=== PATIENT | male | born 1975 | race Two or more races ===

== ENCOUNTER 2020-09-05 12:06 | Emergency (ER) | payer OTHER ==
[~2020-09-05] VITALS: Ht 185.4 cm; Wt 108.9 kg
[~2020-09-05 12:06] MED LIST: BUCALSEP SPRAY30 ML MM; CATAFLAM50 MG; CIPRODEX OTIC7.5 ML OT; GABAPENTIN; GILTUSS TR TAB1 EACH PO; LOTRISONE CREAM45 GM; NEURONTIN300 MG; NEURONTIN300 MG PO; ORPH100T; ORPH100T PO; PARAFON FORTE500 MG; PREVACID30 MG PO; TRIDERM30 GM TP; ULTRACET; ULTRACET PO; ZANTAC150 M3 PO; ZANTAC300 MG PO; ZITHROMAX500 MG PO; ZYRTEC10 MG PO
== END 2020-09-05 15:57 | disposition home or self-care (01) ==
LOC: ER 12:06
DX: K29.70 Gastritis, unspecified, without bleeding (principal); Z11.52 Encounter for screening for COVID-19

== ENCOUNTER 2020-10-27 08:15 | Emergency (ER) | payer OTHER ==
[~2020-10-27] VITALS: Ht 185.4 cm; Wt 106.6 kg
[2020-10-27] MEDS ORDERED: ULTRAM50 MG PO (12:51)
== END 2020-10-27 14:02 | disposition home or self-care (01) ==
LOC: ER 08:15
DX: M54.5 Low back pain (principal)

== ENCOUNTER 2021-08-18 05:56 | Emergency (ER) | payer OTHER ==
[~2021-08-18] VITALS: Ht 185.4 cm; Wt 99.8 kg
[~2021-08-18 05:56] MED LIST changes: +ULTRAM50 MG PO
== END 2021-08-18 14:53 | disposition home or self-care (01) ==
LOC: ER 05:56
DX: R10.84 Generalized abdominal pain (principal)

== ENCOUNTER 2021-10-07 11:52 | Emergency (ER) | payer OTHER ==
[~2021-10-07] VITALS: Ht 185.4 cm; Wt 95.3 kg
[2021-10-07] MEDS ORDERED: NEURONTIN300 MG PO (16:26)
[2021-10-07] MEDS ORDERED: NORFLEX100MG PO (16:26)
== END 2021-10-07 16:45 | disposition home or self-care (01) ==
LOC: ER 11:52
DX: M25.521 Pain in right elbow (principal); Z88.6 Allergy status to analgesic agent

== ENCOUNTER 2021-12-19 15:52 | Emergency (ER) | payer OTHER ==
[~2021-12-19] VITALS: Ht 185.4 cm; Wt 555.2 kg
[~2021-12-19 15:52] MED LIST changes: +NORFLEX100MG PO
[2021-12-19] MEDS ORDERED: ZYRTEC (16:46)
== END 2021-12-19 20:13 | disposition home or self-care (01) ==
LOC: ER 15:52
DX: U07.1 COVID-19 (principal)

== ENCOUNTER 2022-02-23 08:35 | Emergency (ER) | payer OTHER ==
[~2022-02-23] VITALS: Ht 185.4 cm; Wt 102.1 kg
[~2022-02-23 08:35] MED LIST changes: +ZYRTEC
== END 2022-02-23 11:45 | disposition home or self-care (01) ==
LOC: ER 08:35
DX: J06.9 Acute upper respiratory infection, unspecified (principal); Z88.6 Allergy status to analgesic agent; Z20.822 Contact with and (suspected) exposure to COVID-19

== ENCOUNTER → 2022-07-31 | Emergency (ER) | payer OTHER ==
[~2022-07-31] VITALS: Ht 185.4 cm; Wt 98.9 kg
[~2022-07-31] MED LIST changes: +TRAM1TAB98 PO
== END | disposition home or self-care (01) ==
LOC: ER 09:59
DX: M54.59 Other low back pain (principal)